=== PATIENT | male | born 1985 | race Caucasian/White ===

== ENCOUNTER 2018-11-27 07:25 | Emergency (ER) | payer BC, OTHER ==
--- NOTE | 2018-11-27 07:57 | EDM.PDOC ---
ED HPI GENERAL MEDICAL PROBLEM - General Chief Complaint: Laceration Stated Complaint: LACERATION TO LT FOOT Time Seen by Provider: 11/27/18 07:56 - History of Present Illness INITIAL COMMENTS - FREE TEXT/NARRATIVE: 33-year-old male presents emergency room with laceration to his left ankle Shortly before arrival patient Dr. margarito thompson striking the outside of his left lower leg just above the ankle he did not have pain with this immediately noticed some significant bleeding. He has a laceration little over an inch long here. He came right to the emergency department with this. The patient is walking without difficulty however when he walks the bleeding gets a little worse. His last tetanus shot was 2014. 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) Left Ankle Pain Score (Numeric/FACES): 4 - Related Data Allergies Allergy/AdvReac Type Severity Reaction Status Date / Time No Known Allergies Allergy Verified 11/27/18 07:42 Home Meds: Home Meds traZODone HCl [Trazodone HCl] 100 mg PO BEDTIME 11/27/18 [History] Past Medical History - Past Surgical History Musculoskeletal Surgical History: Reports: Arthroscopic Knee Dermatological Surgical History: Reports: Other (See Below) Social & Family History - Caffeine Use Caffeine Use: Reports: None - Recreational Drug Use Recreational Drug Use: Yes Drug Use in Last 12 Months: Yes Recreational Drug Type: Reports: Marijuana/Hashish Recreational Drug Use Frequency: Rarely ED ROS GENERAL - Review of Systems Review Of Systems: See Below Constitutional: Reports: No Symptoms Respiratory: Reports: No Symptoms Cardiovascular: Reports: No Symptoms GI/Abdominal: Reports: No Symptoms ED EXAM, SKIN/RASH Exam: See Below Exam Limited By: No Limitations General Appearance: Alert, No Apparent Distress Respiratory/Chest: No Respiratory Distress, Lungs Clear, Normal Breath Sounds Cardiovascular: Regular Rate, Rhythm, No Edema, No Murmur Extremities: Other (Left lower leg shows a 3 similar laceration proximal to the lateral malleolus by 4-5 cm. Gentle manipulation of this shows that he goes into the subcutaneous fat no other deep tissues identified no foreign bodies identified) ED SKIN PROCEDURES - Laceration/Wound Repair Left Leg Lac/Wound length In cm: 2.5 Appearance: Subcutaneous Distal NVT: Neuro & Vascular Intact Anesthetic Type: Local Local Anesthesia - Lidocaine (Xylocaine): 1% with EPI Local Anesthetic Volume: 4cc Skin Prep: Saline Exploration/Debridement/Repair: Wound Explored, In a Bloodless Field, Explored to Base Closed with: Sutures Suture Size: 3-0 # of Sutures: 6 Suture Type: Nylon Suture Size: 4-0 # of Sutures: 2 (Patient had some bleeding from the subcutaneous vessels this improved somewhat with tying these down) Repaired with: Vicryl Sterile Dressing Applied: Nurse Tetanus Status Addressed: Yes (He is up-to-date) Complications: No Course - Vital Signs Last Recorded V/S: Last Vital Signs Temp 36.6 C 11/27/18 07:38 Pulse 90 11/27/18 07:38 Resp 16 11/27/18 07:38 BP 131/87 11/27/18 07:38 Pulse Ox 95 11/27/18 07:38 - Orders/Labs/Meds Meds: Medications Discontinued Medications Generic Name Dose Route Start Last Admin Trade Name Maninder PRN Reason Stop Dose Admin Lidocaine/Epinephrine 20 ml 11/27/18 08:11 11/27/18 08:30 Xylocaine 1% With Epinephrine 1:100,000 INJECT 11/27/18 08:12 20 ml ONETIME ONE Administration Departure - Departure Time of Disposition: 09:19 Disposition: Home, Self-Care 01 Clinical Impression: Laceration of left lower leg - Discharge Information Instructions: Wound Infection, Laceration Care, Adult Referrals: Yunior Yoder MD [Primary Care Provider] - Forms: ED Department Discharge Additional Instructions: Return to the emergency room with any questions problems worsening symptoms. Follow-up in the clinic in 10-12 days for suture removal. Keep the wound absolutely clean and dry for the next 48 hours after 48 hours attempt to keep it clean and dry. You may we'll let water run over it briefly then gently dab dry after 48 hours.
[2018-11-27] MEDS ORDERED: Lidocaine 1% with EPINEPHrine 1:100,000 20 ML MDV INJECT ONE (08:11)
== END 2018-11-27 09:51 | disposition home or self-care (01) ==
LOC: JD.ED 07:25
DX: S81.812A Laceration without foreign body, left lower leg, initial encounter (principal); W22.8XXA Striking against or struck by other objects, initial encounter
CPT/HCPCS: 12001; 12031; 99282; 99282-25

== ENCOUNTER 2019-09-21 11:19 | Emergency (ER) | payer BC, OTHER ==
[2019-09-21] MEDS ORDERED: Ketorolac 60 MG/2 ML SDV IM ONE (12:18)
[2019-09-21] MEDS ORDERED: Orphenadrine 100 MG Tab.ER PO ONE (12:18)
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
--- NOTE | 2019-09-21 13:19 | CR ---
Lumbar spine: AP, lateral and cone-down lateral views centered to the lumbosacral junction were obtained. Moderate disc space narrowing at L5-S1. Mild disc space narrowing at L4-L5. Other disc spaces are maintained. Vertebral body heights are maintained. Pedicles as well as transverse and spinous processes are intact. No subluxation or fracture is seen. Impression: 1. Disc space narrowing as noted above. 2. Nothing acute is appreciated. Diagnostic code #2 Study was dictated in [place] Standard Time
--- NOTE | 2019-09-21 13:19 | CR ---
Right forearm: Two views of the right forearm were obtained. Comparison: No previous study. No discrete fracture or other bony abnormality is seen. Impression: 1. No abnormality is identified on two-view right forearm study Diagnostic code #1 Study was dictated in [place] Standard Time
== END 2019-09-21 13:55 | disposition home or self-care (01) ==
LOC: JD.ED 11:19
DX: M54.5 Low back pain (principal); R51 Headache; M79.631 Pain in right forearm; V53.5XXA Driver of pick-up truck or van injured in collision with car, pick-up truck or van in traffic accident, initial encounter; Y92.410 Unspecified street and highway as the place of occurrence of the external cause
CPT/HCPCS: 72100; 73090; 96372; 99284; A9270; J1885; 99283

== ENCOUNTER 2020-03-18 21:09 | Emergency (ER) | payer BC ==
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
--- NOTE | 2020-03-19 06:30 | CT ---
Head CT Technique: Multiple axial sections through the brain were obtained. Intravenous contrast was not utilized. Comparison: No prior intracranial imaging is available. Findings: Ventricles along with basal cisterns and sulci over the convexities are within normal limits for the patient's age. No abnormal parenchymal densities are seen. No evidence of intracranial hemorrhage. No midline shift or mass-effect is appreciated. Bone window settings were reviewed. Visualized mastoid sinuses and visualized paranasal sinuses show nothing acute. No acute calvarial abnormality is appreciated. Impression: 1. Nothing acute is identified on noncontrast head CT exam. Diagnostic code #1 This report was dictated in MDT I agree with preliminary report from [facility], finalized on 03/19/20, 1:52 AM Central Daylight Time
== END 2020-03-19 08:40 | disposition home or self-care (01) ==
LOC: JD.ED 21:09
DX: F41.9 Anxiety disorder, unspecified (principal); F32.9 Major depressive disorder, single episode, unspecified; G47.00 Insomnia, unspecified; Z79.899 Other long term (current) drug therapy
CPT/HCPCS: 36415; 70450; 70450-26; 80053; 80306; 80307; 81001; 84443; 85025; 85610; 87086; 99283; 99284-25

== ENCOUNTER 2024-09-23 10:51 | Emergency (ER) | payer OTHER ==
[2024-09-23 12:22] LABS: BASOPHILS ABSOLUTE AUTO 0.1 K/mm3 (0.0-0.2); BASOPHILS PERCENT AUTO 0.7 % (0.0-1.0); EOSINOPHILS ABSOLUTE AUTO 0.1 K/mm3 (0.0-0.4); EOSINOPHILS PERCENT AUTO 2.1 % (0.0-6.0); HEMATOCRIT 46.2 % (42.0-52.0); HEMOGLOBIN 15.6 gm/dl (14.0-18.0); IMMATURE GRAN ABSOLUTE AUTO 0.02 K/mm3 (0.00-0.05); IMMATURE GRAN PERCENT AUTO 0.3 % (0.0-0.4); LYMPHOCYTES PERCENT AUTO 29.2 % (24.0-44.0); MEAN CORPUSCULAR HEMOGLOBIN 30.8 pg (28.0-32.0); MEAN CORPUSCULAR HGB CONC 33.8 g/dl (32.0-36.0); MEAN CORPUSCULAR VOLUME 91.1 fl (83.0-99.0); MEAN PLATELET VOLUME 9.8 fl (9.4-12.4); MONOCYTES ABSOLUTE AUTO 0.4 K/mm3 (0.0-0.8); MONOCYTES PERCENT AUTO 6.6 % (0.0-8.0); NEUTROPHILS ABSOLUTE AUTO 4.1 K/mm3 (1.8-7.7); NEUTROPHILS PERCENT AUTO 61.1 % (41.0-71.0); PLATELET COUNT,PLT 292 K/mm3 (150-400); RED BLOOD CELL COUNT 5.07 M/mm3 (4.52-5.90); WHITE BLOOD CELL COUNT,WBC 6.71 K/mm3 (3.9-11.3)
[2024-09-23 12:40] LABS: HEMOGLOBIN A1C 6.5 %
[2024-09-23 12:47] LABS: ALBUMIN 3.5 g/dl (3.4-5.0); ANION GAP 13.3 (5-15); BILIRUBIN TOTAL 0.8 mg/dL (0.2-1.0); CREATININE 1.1 mg/dL (0.7-1.3); EST CRCL DRUG DOSING (CG) 104.83 mL/min; POTASSIUM,K 4.3 mEq/L (3.5-5.1)
== END 2024-09-23 13:31 | disposition home or self-care (01) ==
LOC: JD.ED 10:51
DX: S91.111A Laceration without foreign body of right great toe without damage to nail, initial encounter (principal); E11.9 Type 2 diabetes mellitus without complications; Z79.899 Other long term (current) drug therapy; X58.XXXA Exposure to other specified factors, initial encounter
CPT/HCPCS: 36415; 80053; 83036; 85025; 99283; 99284